=== PATIENT | female | born 1990 | race Caucasian/White ===

== ENCOUNTER → 2018-04-08 22:20 | Observation (INO) ==
[2018-04-08 18:20] LABS: Bilirubin,Urine Small (Negative); Blood,Urine Negative (Negative); Clarity,Urine Cloudy (Clear); Color,Urine Dark Yellow (Yellow); Glucose,Urine (UA) Normal (Normal); Ketones,Urine >=160 mg/dL (Negative); Leukocyte Esterase,Urine Large (Negative); Nitrite,Urine Negative (Negative); Protein,Urine 30 mg/dL (Neg-Trace); Specific Gravity,Urine 1.022 (1.010-1.025); Urobilinogen,Urine Normal (Normal)
[2018-04-08 18:22] LABS: Bacteria,Urine Moderate per hpf (None-Few); Hyaline Casts,Urine Few per lpf (None-Few); Squamous Epithelial Cell,Urine Many per lpf (None-Few); WBC,Urine 50-100 per hpf (0-3)
[2018-04-08 18:42] LABS: Amphetamine Screen,Urine Negative ng/mL (Cutoff=1000); Barbiturate Screen,Urine Negative ng/mL (Cutoff=200); Benzodiazepines Screen,Urine Negative ng/mL (Cutoff=200); Cannabinoid Screen,Urine Negative ng/mL (Cutoff = 50); Cocaine Screen,Urine Negative ng/mL (Cutoff= 300); Opiate Screen,Urine Negative ng/mL (Cutoff=300); Phencyclidine Screen,Urine Negative ng/mL (Cutoff=25)
[2018-04-08 20:10] LABS: Basophils % 0.3 %; Hematocrit 36.9 % (35.3-44.9); Hemoglobin 12.4 g/dL (11.5-15.4); Immature Granulocytes % 4.7 % (0-4); Lymphocytes # 0.4 K/mcL (0.6-4.6); Lymphocytes % 5.3 %; Mean Corpuscular HGB Conc 33.6 g/dL (31.6-35.5); Mean Corpuscular Hemoglobin 30.4 pg (28.0-33.3); Mean Corpuscular Volume 90.4 fL (83.0-100.0); Mean Platelet Volume 9.9 fL (9.4-12.4); Monocytes # 0.3 K/mcL (0.0-1.3); Monocytes % 4.7 %; Neutrophils # 5.8 K/mcL (1.6-8.9); Platelet Count 179 K/mcL (140-400); Red Blood Count 4.08 M/mcL (3.82-4.97); Red Cell Distribution Width 13.3 % (11.5-14.5)
[2018-04-08 20:20] LABS: BUN/Creatinine Ratio 15 (6-26); Blood Urea Nitrogen 9 mg/dL (6-20); Calcium 8.4 mg/dL (8.6-10.3); Carbon Dioxide 21 mEq/L (23-29); Chloride 104 mEq/L (98-107); Glucose 98 mg/dL (70-105); Osmolality,Calculated 279 (280-300); Potassium 3.1 mEq/L (3.5-5.1); Sodium 135 mEq/L (136-145); eGFR For Non-African Americans > 60 (> 60)
[~2018-04-08 22:20] MED LIST: Acetaminophen 325 MG TABLET PO ONE; Ondansetron 4 MG/2 ML VIAL IVP ONE; Ringers Solution, Lactated 1,000 ML IVC ONE; Ringers Solution, Lactated 1,000 ML ONE; cefTRIAXone 2,000 MG in Water for inj. (sterile) 20 ML 20 ML IVPB ONE
--- NOTE | 2018-04-08 22:21 | OB/GYN Progress Note ---
Date of Encounter: 04/08/18 Time of Encounter: 22:17 - Assessment and Plan (1) Acute cystitis during Current Visit: Yes Status: Acute UA with large leukocytes. Rocephin IV given in triage. Pt denies urinary sx or flank pain. Will start 7 days of keflex while awaiting culture results. Qualifiers: Trimester: second trimester Qualified Code(s): O23.12 - Infections of bladder in , second trimester (2) Nausea and vomiting Current Visit: Yes Status: Acute Pt reports no more vomiting since receiving zofran in her IV. She reports feeling much better now and desires discharge home. Discharge home with strict return precautions. POC discussed with Dr. Smith Qualifiers: Vomiting type: unspecified Vomiting Intractability: non-intractable Qualified Code(s): R11.2 - Nausea with vomiting, unspecified (3) 26 weeks gestation of Current Visit: Yes Status: Acute (4) Fever Current Visit: Yes Status: Acute temp improved to 99.5 following Tylenol Qualifiers: Fever type: unspecified Qualified Code(s): R50.9 - Fever, unspecified Subjective - Subjective Interval history: 27 year-old presenting at 26w1d with c/o nausea/vomiting, back pain and fever since 2330 last evening. She reports fevers 101-102 degrees today. She states she spoke to her OBGYN and was told to come in to have baby monitored and to get IV fluids. She receives care from an OBGYN in [place]. She denies leaking, contractions, or bleeding. Good FM. Antepartum ROS: movement normal, no loss of fluid, no vaginal bleeding, no contractions Objective - Vital Signs Vital Signs: Intake and Output 04/08/18 04/08/18 04/08/18 07:59 15:59 23:59 Other: Weight 61.326 kg Patient Weight 04/08/18 23:59 Weight 61.326 kg - Exam FHR: category 1 FHR comments: FHT initially tachycardic but the tachycardia resolved with IV fluids and Tylenol and then FHT 150 baseline with moderate variability and reassuring for GA. Auscultation: bilateral: normal Abdomen: Present: soft, gravid Uterus: Absent: tenderness Comments: No contractions on toco - Labs Labs: Abnormal lab results Immature Gran % 4.7 % (0-4) H 04/08/18 19:47 Lymphocytes # 0.4 K/mcL (0.6-4.6) L 04/08/18 19:47 Sodium 135 mEq/L (136-145) L 04/08/18 19:47 Potassium 3.1 mEq/L (3.5-5.1) L 04/08/18 19:47 Carbon Dioxide 21 mEq/L (23-29) L 04/08/18 19:47 Calculated Osmolality 279 (280-300) L 04/08/18 19:47 Calcium 8.4 mg/dL (8.6-10.3) L 04/08/18 19:47 Urine Clarity Cloudy (Clear) A 04/08/18 18:05 Urine Protein 30 mg/dL (Neg-Trace) H 04/08/18 18:05 Urine Ketones >=160 mg/dL (Negative) H 04/08/18 18:05 Urine Bilirubin Small (Negative) H 04/08/18 18:05 Ur Leukocyte Esterase Large (Negative) H 04/08/18 18:05 Urine Microscopic RBC 5-15 per hpf (0-3) H 04/08/18 18:05 Urine Microscopic WBC 50-100 per hpf (0-3) H 04/08/18 18:05 Ur Squamous Epith Cells Many per lpf (None-Few) H 04/08/18 18:05 Urine Bacteria Moderate per hpf (None-Few) H 04/08/18 18:05 Ur Culture Indicated? NO. (NO) A 04/08/18 18:05
== END | disposition home or self-care (01) ==
LOC: 1NENULAB
PROVIDERS: ADMIT Registered Nurse; ATTEND Registered Nurse